=== PATIENT | male | born 1940 | race Caucasian/White ===

== ENCOUNTER → 2021-02-15 | Outpatient (CLI) | payer MEDICARE ==
[~2021-02-15] MED LIST: REGADENOSON 0.4 MG/5 ML SYRINGE IV PRN
--- NOTE | 2021-02-15 11:37 | P.STRESS ---
- Stress Test Note Stress Test Results/Findings: Exam Performed: NM stress lexiscan cardiolite Exam Date: 02/15/21 Reason for Exam: DYSPNEA Height: 5 ft 11 in Weight: 102.3 kg Protocol: LEXISCAN Stage: NA Duration of Exercise: 5 MINUTES Resting Heart Rate: 57 Resting Blood Pressure: 131/70 Maximum Achieved Heart Rate: 76 Maximum Achieved Blood Pressure: 131/70 85% PMHR: 101 100% PMHR: 119 METS: NA Technologist Comment: Stress Test Results/Findings: This is a 80-year-old gentleman with history of hypertension, diabetes, hypercholesterolemia, who was sent here for cardiac evaluation, as a preop procedure. Patient also has exertional dyspnea. Stress data: Baseline EKG showed sinus rhythm with normal WA interval and QRS duration. Blood pressure at rest is 130/70 with pulse rate of 57. Patient was given standard dose of Lexiscan. EKGs taken during and after the infusion did not reveal any significant changes from baseline. Final impression: #1. Negative Lexiscan stress test #2. Report on the nuclear images to be provided by the radiologist
--- NOTE | 2021-02-15 13:26 | NM ---
EXAMINATION TYPE: NM stress lexiscan cardiolite DATE OF EXAM: 02/15/2021 COMPARISON: NONE HISTORY: Chest pain TECHNIQUE: After the intravenous administration of 9.7 mCi Tc 99m Sestamibi - Cardiolite resting SPE CT images acquired 45 minutes post injection. The patient received 0.4mg Lexiscan, 25.8 mCi Tc 99m Sestamibi - Stress images obtained [address] injection FINDINGS: Review of stress and rest SPECT images demonstrates no distinct perfusion abnormality. Gated analysi s shows normal wall motion with an estimated left ventricular ejection fraction of 65 %. IMPRESSION: No scintigraphic evidence for reversible ischemia.
--- NOTE | 2021-02-18 09:03 | ECHOS ---
Stress Test Results/Findings: Exam Performed: NM stress lexiscan cardiolite Exam Date: 02/15/21 Reason for Exam: DYSPNEA Height: 5 ft 11 in Weight: 102.3 kg Protocol: LEXISCAN Stage: NA Duration of Exercise: 5 MINUTES Resting Heart Rate: 57 Resting Blood Pressure: 131/70 Maximum Achieved Heart Rate: 76 Maximum Achieved Blood Pressure: 131/70 85% PMHR: 101 100% PMHR: 119 METS: NA Technologist Comment: Stress Test Results/Findings: This is a 80-year-old gentleman with history of hypertension, diabetes, hypercholesterolemia, who was sent here for cardiac evaluation, as a preop procedure. Patient also has exertional dyspnea. Stress data: Baseline EKG showed sinus rhythm with normal [place] interval and QRS duration. Blood pressure at rest is 130/70 with pulse rate of 57. Patient was given standard dose of Lexiscan. EKGs taken during and after the infusion did not reveal any significant changes from baseline. Final impression: #1. Negative Lexiscan stress test #2. Report on the nuclear images to be provided by the radiologist SHARRON
== END | disposition home or self-care (01) ==
LOC: RADNMMAIN 07:53
PROVIDERS: ATTEND Family Medicine
DX: R07.9 Chest pain, unspecified (principal)
CPT/HCPCS: 93017; 78452; A9500; J2785

== ENCOUNTER → 2021-02-18 | Outpatient (CLI) | payer MEDICARE ==
[2021-02-18 11:57] LABS: Potassium 5.1 mmol/L (3.5-5.1)
[2021-02-18 11:58] LABS: Calcium 10.5 mg/dL (8.4-10.2)
[2021-02-18 12:11] LABS: Basophils # (A) 0.1 k/uL (0-0.2); Basophils % (A) 1 %; Eosinophils # (A) 0.2 k/uL (0-0.7); Eosinophils % (A) 3 %; HCT 47.8 % (39.0-53.0); HGB 16.9 gm/dL (13.0-17.5); Lymphocytes # (A) 1.8 k/uL (1.0-4.8); Lymphocytes % (A) 24 %; MCH 31.2 pg (25.0-35.0); MCHC 35.3 g/dL (31.0-37.0); MCV 88.4 fL (80.0-100.0); Mean Platelet Volume 7.1; Monocytes # (A) 0.5 k/uL (0-1.0); Monocytes % (A) 7 %; Neutrophils # (A) 4.7 k/uL (1.3-7.7); Neutrophils % (A) 64 %; Platelet Count 200 k/uL (150-450); RDW 13.5 % (11.5-15.5); WBC 7.5 k/uL (3.8-10.6)
[2021-02-18 12:13] LABS: Partial Thromboplastin Time 25.1 sec (22.0-30.0); Prothrombin Time 10.7 sec (9.0-12.0)
[2021-02-18 12:30] LABS: Appearance,Urine Clear (Clear); Bilirubin,Urine Negative (Negative); Blood,Urine Negative (Negative); Color,Urine Light Yellow; Glucose,Urine (UA) Negative (Negative); Ketones,Urine Negative (Negative); Leukocyte Esterase,Urine Negative (Negative); Nitrite,Urine Negative (Negative); Protein,Urine Negative (Negative); Specific Gravity,Urine 1.012 (1.001-1.035); Urobilinogen,Urine <2.0 mg/dL (<2.0)
--- NOTE | 2021-02-18 12:49 | XR ---
EXAMINATION TYPE: XR chest 2V DATE OF EXAM: 02/18/2021 COMPARISON: NONE HISTORY: Lumbar stenosis, presurgical TECHNIQUE: Frontal and lateral views of the chest are obtained. FINDINGS: There is no focal air space opacity, pleural effusion, or pneumothorax seen. The cardiac silhouette size is within normal limits. The osseous structures are intact, there is thoracic spond ylosis. Suspect there may be coronary artery calcifications. Aorta is dense and tortuous.. There is l ikely bowel hernia present, retrocardiac density with central lucency. IMPRESSION: No acute cardiopulmonary process. Additional findings above.
== END | disposition home or self-care (01) ==
LOC: LABPAT 09:41
PROVIDERS: ATTEND Orthopaedic Surgery Orthopaedic Surgery of the Spine
DX: Z01.812 Encounter for preprocedural laboratory examination (principal)
CPT/HCPCS: 36415; 71046; 80048; 81003; 85025; 85610; 85730; 87070

== ENCOUNTER 2021-02-27 07:03 | Inpatient (IN) | payer MEDICARE, OTHER ==
[~2021-02-27 07:03] MED LIST changes: +LIDOCAINE 1% (10MG/ML) FOR IV START INTRADERMA PRN; -REGADENOSON 0.4 MG/5 ML SYRINGE IV PRN; +ceFAZolin 1,000 MG in SODIUM CHLORIDE 0.9% IRRIGATIO 1,000 ML IRRIGATION PRN
[2021-02-27] MEDS ORDERED: LACTATED RINGERS 1,000 ML IV ONE ×2 (07:41→09:38)
[2021-02-27 07:56] LABS: Glucose,Whole Blood 134 mg/dL (75-99)
[2021-02-27] MEDS ORDERED: ONDANSETRON 4 MG/2 ML VIAL IVP ONE (08:02)
[2021-02-27] MEDS ORDERED: fentaNYL (PF) 50 MCG/ML 2 ML AMP ONE (08:34)
[2021-02-27] MEDS ORDERED: MIDAZOLAM 2 MG/2 ML VIAL ONE (08:34)
[2021-02-27] MEDS ORDERED: NEOSTIGMINE 1 MG/ML 10 ML VIAL ONE (08:34)
[2021-02-27] MEDS ORDERED: HEPARIN SODIUM,PORCINE 10,000 UNIT/ML 1 ML VIAL ONE (08:34)
[2021-02-27] MEDS ORDERED: PROPOFOL 10 MG/ML 20 ML VIAL IV ONE (08:34)
[2021-02-27] MEDS ORDERED: LIDOCAINE 1% INJ 10MG/ML (20 ML MDV) ONE (08:34)
[2021-02-27] MEDS ORDERED: ePHEDrine SULFATE/0.9% NACL/PF 50 MG/5 ML SYRINGE IV ONE (08:34)
[2021-02-27] MEDS ORDERED: ROCURONIUM 10 MG/ML (5 ML VIAL) IV ONE (08:34)
[2021-02-27] MEDS ORDERED: SODIUM CHLORIDE 0.9% IRRIG 1,000 ML BTL IRRIGATION ONE (08:34)
[2021-02-27] MEDS ORDERED: GLYCOPYRROLATE 0.2 MG/ML 2 ML VIAL ONE (08:34)
[2021-02-27] MEDS ORDERED: SUCCINYLCHOLINE CHLORIDE VIAL 200 MG/10 ML VIAL IV ONE (08:34)
[2021-02-27] MEDS ORDERED: LIDOCAINE 0.5%-EPI 1:200,000 50 ML VIAL SQ ONE (08:40)
[2021-02-27] MEDS ORDERED: GELATIN SPONGE,ABSORB (LARGE) 1 EACH SPONGE TOPICAL ONE (08:40)
[2021-02-27] MEDS ORDERED: THROMBIN (BOVINE) 5,000 UNIT VIAL TOPICAL ONE (08:40)
--- NOTE | 2021-02-27 13:00 | FL ---
EXAMINATION TYPE: FL guidance operating room DATE OF EXAM: 02/27/2021 HISTORY: Fluoroscopy time 32 seconds of fluoroscopy provided. IMPRESSION: 1. Fluoroscopy time.
--- NOTE | 2021-02-27 13:05 | XR ---
Fluoroscopy History: MIN. INVASIVE LUMBAR FUSION FOR SPINAL STENOSIS Lumbar fusion, Dr. Jamison, 32 sec fl time
[2021-02-27] MEDS ORDERED: ONDANSETRON 4 MG/2 ML VIAL IVP PRN (13:06)
[2021-02-27] MEDS ORDERED: BENZOCAINE/MENTHOL LOZENG 1 EACH LOZENGE MUCOUS MEM PRN (13:06)
--- NOTE | 2021-02-27 13:16 | P.OP ---
Date of Procedure: 02/27/21 Preoperative Diagnosis: Severe spinal stenosis L3 4 L4 5, facet cyst on the left at L3 4 and on the right at L4 5, low back pain, lower extremity radiculopathy, lower extremity weakness, spinal stenosis, neurogenic claudication, facet arthrosis Postoperative Diagnosis: Same Anesthesia: GETA Pathology: none sent Condition: stable Disposition: PACU Description of Procedure: DESCRIPTION OF PROCEDURE(S): BRIEF OPERATIVE NOTE Preoperative Diagnosis: Severe spinal stenosis L3 4 L4 5, facet cyst on the left at L3 4 and on the right at L4 5, low back pain, lower extremity radiculopathy, lower extremity weakness, spinal stenosis, neurogenic claudication, facet arthrosis Postoperative Diagnosis: Same Procedure: Laminectomy and decompression L3 4 L4 5 Excision of facet cyst L3 [address] navigation aided Minimally invasive Posterior lateral decompression and facet fusion L3 4 L4 5 Minimally invasive Transforaminal lumbar interbody fusion for a 360 fusion at L3 4 and L4 5 Discectomy for decompression at L3 4 and L4 5 Placement of interbody graft at L3 4 and L4 5 Use of computer navigation for fusion L3 4 and 5 Local autogenous bone grafting Aspiration of bone marrow from the vertebral body pedicle of L3 on the right Use of bone graft extenders Surgeon: Dr. Jamison Fingernail Former: Lenin MCKENZIE who is present throughout the entire the case persistence during positioning, dissection, exposure, visualization, and all crucial elements of the case as well as closure. Anesthesia: General anesthesia Estimated blood loss: Approximately 400 mL Complications: None apparent Components implanted: K2M minimally invasive [place] pedicle screw system withscrews measuring 6.5 mm in diameter to rods one [place] interbody cage as well as a expandable 8-13 mm interbody cage with 10 mL of osteo amp bio4 bone graft substitute and 30 mL of the BX bone boats to supplement the local autogenous bone graft and bone marrow aspirate Disposition: To recovery room in good stable condition. OPERATIVE INDICATIONS The patient has had severe issues at their lower extremity in her lower back over the past several years with significant worsening over the past several months. Over the past few months the patient had pain at their back and their lower extremities. The patient is having severe radicular symptoms at their lower extremity with weakness. The patient is having significant pain in their back. They are unable to obtain any comfort. His imaging showed evidence of cysts severe stenosis L3 4 and L4 5 with evidence of facet cyst both at L3 4 and L4 5 causing further compression and correlated well with his low back and lower extremity symptoms . We did aggressive conservative treatment with medications therapy and interventional pain management however thery were not having any rel ief. The patient has been through conservative treatment. We discussed various treatment options including surgery, and the patient wishes to proceed with surgery We discussed the risk, patient's alternatives and benefits of surgery including but not limited to, risk of bleeding risk of infection, risk of need for further surgery, risk of decreased, loss of motion, muscle function, malunion nonunion, hardware failure, nerve damage, paralysis, heart attack, blindness and . They understood issues with the current pandemic and the possibility of exposure. OPERATIVE SUMMARY After discussing all the risks, patient alternatives and benefits at length, the patient elected to proceed with surgical intervention, signed informed consent, and presented for their procedure. The patient was seen and examined in the preoperative holding area and the surgical site was marked. The patient was given antibiotics and brought to the operating room. The patient was sedated and intubated by anesthesia in standard fashion. The patient was positioned on to the operating room table in a prone position on the appropriate frame which was well-padded and well molded. We were careful to pad any bony prominences and pressure points. We were careful to maintain the patient's cervical spine and good neutral alignment and position throughout. The patient was prepped and draped in a normal standard fashion. An appropriate timeout and keystone protocol performed. We were able to proceed with the surgery. The local wound area was infiltrated with local anesthetic. Over the right iliac crest I was able to make small stab incisions and establish a guidepin screw fixation to the iliac crest 2. I was able place the computer referencing device over the guidepins to establish an appropriate reference point for the Ziem CT navigation. We then were able to place patient in an appropriate drape and do a navigation spin for visualization and 3-D reconstruction of the lumbar spine. I was able utilize C-arm guidance and navigation to establish appropriate position over the pedicles bilaterally at the appropriate levels . With the appropriate levels confirmed at L3 4 and 5 was able to make small incisions over the appropriate pedicle sites bilaterally. Utilizing the computer navigation device I was able to establish bony landmarks at the right iliac crest for a bony reference point for the navigation device. I was able to establish a Jamshidi needle over the lateral aspect of the pedicle and advanced the trocar into the pedicle being careful not to breech superiorly inferiorly medially or laterally using computer navigation device. Position was confirmed regularly with AP and lateral images on C-arm and with the computer navigation device at the appropriate levels bilaterally. I was able to establish the trocar into the pedicle appropriately into the posterior aspect of the vertebral body bilaterally at the appropriate levels. This was done at each of the pedicle positions and each of the vertebrae. At the superior vertebrae I was able to take approximately 25 mL of bone aspiration from the pedicle of L3 on the right for use later in the case to supplement the allograft and autograft bone. I was able place the guidewire into the trocar and into the vertebral body appropriately under C-arm guidance. Dissection was taken down over the wire to the appropriate starting position for the screw placed. The appropriate length screw was chosen, threaded over the guidewire and screwed appropriately into the pedicle and vertebral body under C-arm guidance in excellent alignment and position with good bony purchase. This is done at each of the screw sites at the appropriate levels at L3 4 and 5 bilaterally. With the screws intact I extended the incision to connect the screw hole sites on the most symptomatic side first on the right at L4 5 and then on the left at L 3 4. I dissected down to establish access over the pars and lamina to the base of the spinous process. I was able to expose the facet joint. The capsule the facet was taken down and showed some facet arthrosis at the joint. I was able to use a combination of curettes and Kerrison rongeurs and a high-speed drill to take down the facet joint and do a facetectomy. I was able get excellent foraminal decompression and central decompression with undermining across midline to perform a laminectomy centrally and contralaterally. I was able to remove facet cyst from the facet joint extending to the epidural space causing further compression. I was able to get good central decompression. The ligamentum flavum was taken down to further decompress centrally and at bilateral neural foramen. I was able to expose the disc space and visualize the traversing nerve root. Note was made of some disc protrusion and disc herniation that was abutting the traversing nerve root at the level causing further compression of the nerve root. I was able to establish a annulotomy at the appropriate level protecting soft tissue and neural structures. Note was made of some disc desiccation at the disc. I performed a complete discectomy with accommodation of curettes and rasps and scrapers. I was able get good endplate preparation at the disc space. I sized for the appropriate size interbody spacer protecting the soft tissue and neural structures. The wound was copiously irrigated and suctioned dry. There is no evidence of any dural tear or leak. I was able to pack the disc space with local autogenous bone graft as well as a small amount of bone graft which was also placed into the interbody cage itself. Protecting the soft tissue structures and neural structures I was able place the interbody cage in good alignment and good position with good fit and fill at the interbody space. This was done first at L 45 on the right and then at L3 4 similarly on the left. At L3 4 I used an expandable cage for appropriate fit at interbody space Position was confirmed with C-arm guidance. Good hemostasis maintained. There is no evidence of any dural tear or leak. The wound was irrigated and suctioned dry. With the hardware intact, intraoperative C-arm imaging was again taken which showed good alignment and position of the hardware at the appropriate levels Of L3 4 and 5. We were then able to measure, contour and place the rods and appropriate hardware bilaterally. I was able to place capcrews, tighten them down, and torque them with the torque screwdriver appropriately. With this intact I was able to place the local autogenous bone graft with additional bone graft enhancer as necessary into the posterior lateral gutters over the decorticated transverse processes and facet joints on the contralateral side. The remainder of the bone graft was placed over the facet joint on the contralateral side after taking down the facet joint capsule. With the bone graft intact, a stable construct, and good decompression at the appropriate levels, we were able to proceed with closure. Good hemostasis was maintained. There is no evidence of dural tear or leak. The fascia was closed for a watertight closure. he subcuticular tissue was closed with absorbable suture. The wound was cleaned and dried and dressed with the appropriate dressing. The drapes were broken down. The patient was gently rolled back onto their hospital bed being careful to maintain their cervical spine and good neutral alignment and position. They were woken up by anesthesia, extubated, and brought to the recovery room in good stable condition. The patient will be admitted to the hospital for appropriate postoperative care, medical management and monitoring. We will continue to follow them closely about the postoperative course.
[2021-02-27] MEDS: HYDROmorphone 0.5 MG/0.5 ML SYRINGE IVP PRN ×4 (13:24→14:17)
[2021-02-27 13:40] LABS: Glucose,Whole Blood 198 mg/dL (75-99)
[2021-02-27] MEDS: fentaNYL (PF) 50 MCG/ML 2 ML AMP IVP ONE ×3 (13:42→13:59)
[2021-02-27] MEDS: SODIUM CHLORIDE 0.9% 1,000 ML IV SCH ×2 (14:01→14:42)
[2021-02-27] MEDS: HYDROcodone/APAP 5-325MG 1 EACH TAB PO PRN ×2 (15:17→21:17)
[2021-02-27] MEDS: LACTATED RINGERS 1,000 ML IV SCH ×2 (15:31→16:37)
[2021-02-27 16:23] LABS: Glucose,Whole Blood 158 mg/dL (75-99)
[2021-02-27] MEDS: metFORMIN 500 MG TAB PO SCH (16:36)
[2021-02-27] MEDS: HYDROmorphone 1 MG/ML 1 ML SYRINGE IVP PRN ×2 (18:06→23:07)
[2021-02-27 20:12] LABS: Glucose,Whole Blood 140 mg/dL (75-99)
[2021-02-27] MEDS: METOPROLOL SUCCINATE (ER) 50 MG TAB.ER.24H PO SCH (21:17)
[2021-02-28] MEDS: HYDROcodone/APAP 5-325MG 1 EACH TAB PO PRN ×5 (02:14→21:17)
[2021-02-28] MEDS: HYDROmorphone 1 MG/ML 1 ML SYRINGE IVP PRN ×6 (03:30→23:10)
[2021-02-28] MEDS: HYDROmorphone 0.5 MG/0.5 ML SYRINGE IVP PRN (06:11)
[2021-02-28] MEDS: ASCORBIC ACID 500 MG TAB PO SCH (07:01)
[2021-02-28] MEDS: metFORMIN 500 MG TAB PO SCH ×2 (07:02→16:46)
[2021-02-28] MEDS: ATORVASTATIN 10 MG TAB PO SCH (07:02)
[2021-02-28] MEDS: ZINC SULFATE 220 MG CAP PO SCH (07:02)
[2021-02-28] MEDS: PANTOPRAZOLE 40 MG TABLET PO SCH (07:02)
[2021-02-28] MEDS: CYCLOBENZAPRINE 10 MG TAB PO PRN (07:03)
[2021-02-28] MEDS: LOSARTAN 50 MG TAB PO SCH (07:03)
[2021-02-28] MEDS: CHOLECALCIFEROL 25 MCG (1000 IU) TABLET PO SCH (07:03)
[2021-02-28] MEDS: DULoxetine HCL 30 MG CAPSULE.DR PO SCH (07:03)
[2021-02-28] MEDS: SENNOSIDES-DOCUSATE SODIUM 1 EACH TAB PO SCH (07:03)
[2021-02-28 07:04] LABS: Glucose,Whole Blood 156 mg/dL (75-99)
[2021-02-28] MEDS: SODIUM CHLORIDE 0.9% 1,000 ML IV SCH ×2 (07:05→15:24)
[2021-02-28] MEDS ORDERED: NON FORMULARY DRUG (Ubidecarenone [Co Q-10] 100 MG Capsule) PO SCH (09:00)
[2021-02-28 09:55] LABS: Basophils # (A) 0.03 X 10*3/uL (0.00-0.10); Basophils % (A) 0.3 %; Eosinophils # (A) 0.06 X 10*3/uL (0.04-0.35); Eosinophils % (A) 0.5 %; HCT 40.4 % (39.6-50.0); HGB 13.4 g/dL (13.0-17.0); Lymphocytes # (A) 1.52 X 10*3/uL (0.90-5.00); Lymphocytes % (A) 13.3 %; MCH 30.3 pg (27.0-32.0); MCHC 33.2 g/dL (32.0-37.0); MCV 91.4 fL (80.0-97.0); Mean Platelet Volume 9.3 fL (9.5-12.2); Monocytes # (A) 1.31 X 10*3/uL (0.20-1.00); Monocytes % (A) 11.5 %; Neutrophils # (A) 8.44 X 10*3/uL (1.80-7.70); Platelet Count 148 X 10*3/uL (140-440); RBC 4.42 X 10*6/uL (4.40-5.60); RDW 13.2 % (11.5-14.5); WBC 11.41 X 10*3/uL (4.50-10.00)
--- NOTE | 2021-02-28 10:19 | P.PN ---
Progress Note - Text Progress Note Date: 02/28/21 Postoperative day #1 Patient is seen and examined today at bedside. The patient has some pain around the surgical site as expected. Pain is being controlled with medication. He is sealed up in bed and is tolerating his diet. He is voiding freely. Physical Exam Afebrile with stable vital signs Abdomen is soft nontender. Chest has good excursion deep and space expiration The incision site is clean dry and intact. No erythema there is no purulence. Dressing is dry. Extremities have not had neurologic change from prior to surgery. Calves and thighs were soft nontender without evidence of DVT. He is good sustained dorsal flexion plantar flexion and EHL intact. Assessment/Plan Postoperative day #1 status post minimally invasive decompression fusion L34 and L4 5 for his severe spinal stenosis with facet cysts lower extremity radiculopathy and neurogenic claudication. He is making good progress Patient is progressing as expected from the surgery. He already has been able to mobilize and get up to a chair. He still requiring IV medication for pain but is hopeful to continue to transition and potentially be discharged home tomorrow We will continue to increase the patient's mobilization with therapy. We will continue pain control with oral or IV medications. We'll continue to follow patient closely.
[2021-02-28 11:26] LABS: Glucose,Whole Blood 147 mg/dL (75-99)
[2021-02-28] MEDS: LACTATED RINGERS 1,000 ML IV SCH (15:24)
[2021-02-28 16:00] LABS: African American GFR (CKD) 81.5 (60.0-200.0); Anion Gap 14.8 mmol/L (4.00-12.00); BUN/Creat Ratio 14.3 Ratio (12.00-20.00); Blood Urea Nitrogen 14.3 mg/dL (9.0-27.0); Calcium 8.6 mg/dL (8.7-10.3); Carbon Dioxide 21.4 mmol/L (21.6-31.8); Non-African American GFR(CKD) 70.3 (60.0-200.0); Potassium 4.5 mmol/L (3.5-5.5)
[2021-02-28 16:49] LABS: Glucose,Whole Blood 163 mg/dL (75-99)
[2021-02-28 21:13] LABS: Glucose,Whole Blood 170 mg/dL (75-99)
[2021-02-28] MEDS: METOPROLOL SUCCINATE (ER) 50 MG TAB.ER.24H PO SCH (21:17)
[2021-03-01] MEDS: CYCLOBENZAPRINE 10 MG TAB PO PRN ×3 (01:18→22:29)
[2021-03-01] MEDS: HYDROmorphone 1 MG/ML 1 ML SYRINGE IVP PRN ×3 (03:21→22:29)
[2021-03-01] MEDS: HYDROcodone/APAP 5-325MG 1 EACH TAB PO PRN ×3 (04:22→12:25)
[2021-03-01 07:14] LABS: Glucose,Whole Blood 147 mg/dL (75-99)
[2021-03-01] MEDS: SODIUM CHLORIDE 0.9% 1,000 ML IV SCH ×3 (07:26→22:32)
[2021-03-01] MEDS: LOSARTAN 50 MG TAB PO SCH (08:01)
[2021-03-01] MEDS: PANTOPRAZOLE 40 MG TABLET PO SCH (08:01)
[2021-03-01] MEDS: ZINC SULFATE 220 MG CAP PO SCH (08:01)
[2021-03-01] MEDS: CHOLECALCIFEROL 25 MCG (1000 IU) TABLET PO SCH (08:01)
[2021-03-01] MEDS: ATORVASTATIN 10 MG TAB PO SCH (08:01)
[2021-03-01] MEDS: SENNOSIDES-DOCUSATE SODIUM 1 EACH TAB PO SCH (08:01)
[2021-03-01] MEDS: DULoxetine HCL 30 MG CAPSULE.DR PO SCH (08:01)
[2021-03-01] MEDS: ASCORBIC ACID 500 MG TAB PO SCH (08:01)
[2021-03-01] MEDS: metFORMIN 500 MG TAB PO SCH ×2 (08:01→16:45)
--- NOTE | 2021-03-01 08:34 | P.CONS ---
History of Present Illness - Reason for Consult Consult date: 02/28/21 medical eval Requesting physician: Aston Jamison - History of Present Illness Aric Queen is an 80 yo M with PMH of HTN, OA, lumbar spinal stenosis who is admitted for decompressive lumbar fusion. He is POD#1, states he is overall feeling well, minimal low back pain. He has been up and ambulating with PT, no issues with balance or weakness. Denies chest pain, fever, chills, shortness of breath. Review of Systems All systems: negative Constitutional: Denies chills, Denies fever Eyes: denies blurred vision, denies pain Ears, nose, mouth and throat: Denies headache, Denies sore throat Cardiovascular: Denies chest pain, Denies shortness of breath Respiratory: Denies cough Gastrointestinal: Denies abdominal pain, Denies diarrhea, Denies nausea, Denies vomiting Musculoskeletal: Denies myalgias Integumentary: Denies pruritus, Denies rash Neurological: Denies numbness, Denies weakness Psychiatric: Denies anxiety, Denies depression Endocrine: Denies fatigue, Denies weight change Past Medical History Past Medical History: Diabetes Mellitus, GERD/Reflux, Hyperlipidemia, Hypertension, Osteoarthritis (OA) Additional Past Medical History / Comment(s): HX COLON POLYPS. NEUROPATHY IN FEET. History of Any Multi-Drug Resistant Organisms: None Reported Past Surgical History: Joint Replacement Additional Past Surgical History / Comment(s): DEIRDRE KNEE REPLACEMENTS. FUSION OF RIGHT WRIST Past Anesthesia/Blood Transfusion Reactions: No Reported Reaction Past Psychological History: No Psychological Hx Reported Additional Psychological History / Comment(s): TAKES DULOXETINE FOR NEUROPATHY IN FEET. Smoking Status: Never smoker Past Alcohol Use History: Rare Past Drug Use History: None Reported - Past Family History Mother Family Medical History: Cancer Additional Family Medical History / Comment(s): MOTHER PASSED AT AGE 38 FROM BREAST CANCER. Medications and Allergies Home Medications Medication Instructions Recorded Confirmed Type Ascorbic Acid [Vitamin C] 100 mg PO DAILY 02/25/21 02/25/21 History Cholecalciferol [Vitamin D3 (25 50 mcg PO DAILY 02/25/21 02/25/21 History Mcg = 1000 Iu)] DULoxetine HCL [Cymbalta] 30 mg PO QAM 02/25/21 02/27/21 History Fiber Tabs 1 tab PO DAILY 02/25/21 02/27/21 History Ibuprofen [Motrin] 800 mg PO BID PRN 02/25/21 02/25/21 History Losartan [Cozaar] 50 mg PO QAM 02/25/21 02/25/21 History Metoprolol Succinate [Toprol XL] 50 mg PO HS 02/25/21 02/27/21 History Omeprazole 40 mg PO QAM 02/25/21 02/27/21 History Simvastatin [Zocor] 20 mg PO QAM 02/25/21 02/27/21 History Ubidecarenone [Co Q-10] 100 mg PO DAILY 02/25/21 02/27/21 History Zinc Sulfate [Orazinc] 25 mg PO DAILY 02/25/21 02/25/21 History metFORMIN HCL 500 mg PO BID 02/25/21 02/27/21 History Allergies Allergy/AdvReac Type Severity Reaction Status Date / Time No Known Allergies Allergy Verified 08/20/15 13:51 Physical Exam Vitals: Vital Signs Temp Pulse Pulse Resp BP Pulse Ox 03/01/21 02:00 99.1 F 89 17 168/72 96 02/28/21 19:26 98.8 F 92 16 163/86 95 02/28/21 14:00 99.1 F 97 18 161/78 94 L Intake and Output 02/28/21 03/01/21 03/01/21 22:59 06:59 14:59 Intake Total 250 380 Output Total 900 1000 Balance -650 -620 Intake: Oral 250 380 Output: Urine 900 1000 Uretheral (Christopher) 900 1000 Gen: well developed, well nourished, NAD HEENT: normocephalic, atraumatic, mucus membranes moist Neck: supple, no thyromegaly, no JVD CV: RRR, no murmur Lungs: normal effort clear throghout Abd: soft, nontender, non distended Neuro: alert and oriented x3 no focal deficits Skin: warm and dry Results CBC & Chem 7: 02/28/21 05:59 02/28/21 05:59 Labs: Abnormal Lab Results - Last 24 Hours (Table) 02/28/21 02/28/21 02/28/21 Range/Units 05:59 05:59 11:20 WBC 11.41 H (4.50-10.00) X 10*3/uL MPV 9.3 L (9.5-12.2) fL Immature Gran # 0.05 H (0.00-0.04) X 10*3/uL Neutrophils # 8.44 H (1.80-7.70) X 10*3/uL Monocytes # 1.31 H (0.20-1.00) X 10*3/uL Carbon Dioxide 21.4 L (21.6-31.8) mmol/L Anion Gap 14.80 H (4.00-12.00) mmol/L Glucose 149 H (70-110) mg/dL POC Glucose (mg/dL) 147 H (75-99) mg/dL Calcium 8.6 L (8.7-10.3) mg/dL 02/28/21 02/28/21 03/01/21 Range/Units 16:41 21:11 07:12 WBC (4.50-10.00) X 10*3/uL MPV (9.5-12.2) fL Immature Gran # (0.00-0.04) X 10*3/uL Neutrophils # (1.80-7.70) X 10*3/uL Monocytes # (0.20-1.00) X 10*3/uL Carbon Dioxide (21.6-31.8) mmol/L Anion Gap (4.00-12.00) mmol/L Glucose (70-110) mg/dL POC Glucose (mg/dL) 163 H 170 H 147 H (75-99) mg/dL Calcium (8.7-10.3) mg/dL Assessment and Plan Plan: 1. Spinal stenosis s/p lumbar fusion. Doing well, continue with PT, OT. Management per surgery. He is medically stable for discharge 2. HTN. Resume losartan 3. T2DM. Resume metformin. Accucheck
--- NOTE | 2021-03-01 08:47 | P.PN ---
Progress Note - Text Progress Note Date: 03/01/21 Orthopedic Spine: History of present illness: Patient is a pleasant 80-year-old male who is seen and examined at the bedside following posterior lateral decompression and fusion performed Thursday. Patient states they are doing okay postsurgically. He states he does continue to have some ongoing low back pain and generalized pain as well as lower extremities. He has been able to work with physical therapy to increase his ambulation and transfer to a chair. He was having significant difficulty with voiding yesterday and required straight catheterization to be performed twice. Bladder scan imaging showed evidence of 900 mL's of urinary retention. Christopher catheter was placed last night. Currently does not complain of nausea, vomiting, fever, or chills. Patient is eating without difficulty but does not have much of an appetite. He is being seen and examined by medicine. He does continue to require IV pain medication for pain control. He is being seen and examined by Dr. Mendoza in medicine. Physical Exam Lumbar Fusion: Status post surgical day number 2 Patient is awake, alert, and oriented 3 Vital signs stable Good chest excursion with deep inspiration and expiration Dorsiflexion, plantarflexion, and extensor hallucis longus positive sustained bilaterally No signs or symptoms of DVT; no calf pain; pneumatic cuffs not currently intact bilateral lower extremities Optifoam dressings are dry and intact over the lumbar spine with one small spot of blood over the left incision site and right iliac crest; no erythema, purulence, or signs of infection Neurovascularly intact bilaterally lower extremities Assessment: Status post L3-4 and L4-5 minimally invasive posterior lateral decompression and fusion with transforaminal lumbar interbody fusion Low back pain L3-4 and L4-5 severe spinal canal stenosis L3-4 left facet cyst L4-5 right facet cyst Lower extremity radiculopathy Lower extremity weakness Hyperlipidemia Type 2 diabetes Obesity Plan: 1. Ambulate as tolerated; work with Physical Therapy to increase mobilization 2. Continue pain control with IV and oral medications; will plan to begin weaning the patient off of IV narcotic medication in anticipation for discharge home in the next 1-2 days. We will plan to increase Esparto to Esparto 7.5 mg /325 mg every 4 hours as needed for pain control and discontinue Esparto 5 mg/325 mg. May continue with cyclobenzaprine 10 mg 3 times a day as prescribed as needed for muscle spasm. MAPS has been reviewed today, 03/01/2021, with an Overall Overdose Risk Score of 190. An "Opiod Start Talking" Form has been signed and placed in the patient's chart. A prescription has been written for Esparto 7.5 mg/325 mg 1 tab every 4 hours as needed for pain, dispensed #42. He is also given a prescription for cyclobenzaprine 10 mg 1 tab 3 times a day as needed for muscle spasm, dispensed #60. Prescriptions are sent to the [facility] pharmacy located within [facility]. 3. Dressings to remain intact with Optifoam; patient may shower with dressings intact 4. Medical management can continue to manage patient for patient's other medical diagnoses including urinary retention. Patient has been discussed in detail with medicine. Patient will plan to keep his Christopher catheter intact per recommendations of medicine. 5. We will continue to follow the patient closely; depending on the patient's p rogress, we may plan for discharge home as early as tomorrow, 03/01/2021, if cleared by medicine. 6. Patient can follow-up with Lenin Pabon PA-C or Dr. Gino Jamison at [facility] in 2-3 weeks following discharge
[2021-03-01] MEDS: TAMSULOSIN 0.4 MG CAP.ER.24H PO SCH (09:20)
[2021-03-01] MEDS: LACTATED RINGERS 1,000 ML IV SCH (09:51)
[2021-03-01 11:09] LABS: Glucose,Whole Blood 177 mg/dL (75-99)
--- NOTE | 2021-03-01 13:24 | P.PN ---
Subjective Progress Note Date: 03/01/21 Aric Queen is an 80 yo M with PMH of HTN, OA, lumbar spinal stenosis who is admitted for decompressive lumbar fusion. He is POD#1, states he is overall feeling well, minimal low back pain. He has been up and ambulating with PT, no issues with balance or weakness. Denies chest pain, fever, chills, shortness of breath. 03/01/2021 During the night developed urinary retention requiring straight cathing 2 with eventual placement of Christopher catheter. BUN 14.3, creatinine 1. Reports positive pain. Ambulated out into the hallway. T-max 99.1, WBC 11.4. Blood sugars controlled Objective - Vital Signs Vital signs: Vital Signs Temp 98.4 F 03/01/21 09:47 Pulse 81 03/01/21 09:47 Resp 16 03/01/21 09:47 BP 150/73 03/01/21 09:47 Pulse Ox 96 03/01/21 09:47 Intake & Output 02/28/21 03/01/21 03/01/21 18:59 06:59 18:59 Intake Total 250 380 Output Total 600 1900 2800 Balance -350 -1520 -2800 Intake: Oral 250 380 Output: Urine 600 1900 2800 Uretheral (Christopher) 600 1900 Other: Voiding Method Indwelling Catheter - Exam Gen: well developed, well nourished, NAD HEENT: normocephalic, atraumatic, mucus membranes moist Neck: supple, no thyromegaly, no JVD CV: RRR, no murmur Lungs: normal effort clear throghout Abd: soft, nontender, non distended, +BS Neuro: alert and oriented x3 no focal deficits Skin: warm and dry - Labs CBC & Chem 7: 02/28/21 05:59 02/28/21 05:59 Labs: Abnormal Lab Results - Last 24 Hours (Table) 02/28/21 02/28/21 02/28/21 Range/Units 05:59 16:41 21:11 Carbon Dioxide 21.4 L (21.6-31.8) mmol/L Anion Gap 14.80 H (4.00-12.00) mmol/L Glucose 149 H (70-110) mg/dL POC Glucose (mg/dL) 163 H 170 H (75-99) mg/dL Calcium 8.6 L (8.7-10.3) mg/dL 03/01/21 03/01/21 Range/Units 07:12 11:08 Carbon Dioxide (21.6-31.8) mmol/L Anion Gap (4.00-12.00) mmol/L Glucose (70-110) mg/dL POC Glucose (mg/dL) 147 H 177 H (75-99) mg/dL Calcium (8.7-10.3) mg/dL Assessment and Plan Assessment: Spinal stenosis s/p lumbar fusion. Urinary retention, status post Christopher catheter insertion HTN. T2DM. Plan: Continue on current medication regime ,monitoring and symptomatic treatment. PT/OT. Increase ambulation as tolerated. Pain management as per orthopedic spine surgery. Flomax added to med regimen. The impression and plan of care has been dictated as directed. : I performed a history and examination of this patient, discussed the same with the dictator. I agree with the dictator's note ,documented as a scribe. Any a dditional findings or plans will be noted.
[2021-03-01] MEDS: HYDROmorphone 0.5 MG/0.5 ML SYRINGE IVP PRN (14:57)
[2021-03-01] MEDS: HYDROcodone/APAP 7.5-325MG 1 EACH TAB PO PRN (15:54)
[2021-03-01 16:29] LABS: Glucose,Whole Blood 142 mg/dL (75-99)
[2021-03-01 20:53] LABS: Glucose,Whole Blood 219 mg/dL (75-99)
[2021-03-01] MEDS: METOPROLOL SUCCINATE (ER) 50 MG TAB.ER.24H PO SCH (22:29)
[2021-03-02] MEDS: HYDROcodone/APAP 7.5-325MG 1 EACH TAB PO PRN ×6 (00:20→22:08)
[2021-03-02] MEDS: HYDROmorphone 1 MG/ML 1 ML SYRINGE IVP PRN (03:26)
[2021-03-02 08:07] LABS: Glucose,Whole Blood 172 mg/dL (75-99)
[2021-03-02] MEDS: CHOLECALCIFEROL 25 MCG (1000 IU) TABLET PO SCH (08:23)
[2021-03-02] MEDS: metFORMIN 500 MG TAB PO SCH ×2 (08:23→17:03)
[2021-03-02] MEDS: TAMSULOSIN 0.4 MG CAP.ER.24H PO SCH (08:23)
[2021-03-02] MEDS: ZINC SULFATE 220 MG CAP PO SCH (08:23)
[2021-03-02] MEDS: DULoxetine HCL 30 MG CAPSULE.DR PO SCH (08:23)
[2021-03-02] MEDS: PANTOPRAZOLE 40 MG TABLET PO SCH (08:23)
[2021-03-02] MEDS: SENNOSIDES-DOCUSATE SODIUM 1 EACH TAB PO SCH (08:23)
[2021-03-02] MEDS: ASCORBIC ACID 500 MG TAB PO SCH (08:23)
[2021-03-02] MEDS: ATORVASTATIN 10 MG TAB PO SCH (08:23)
[2021-03-02] MEDS: LOSARTAN 50 MG TAB PO SCH (08:23)
--- NOTE | 2021-03-02 09:38 | P.PN ---
Progress Note - Text Progress Note Date: 03/02/21 Postoperative day #3 Patient is seen and examined today at bedside. The patient has some pain around the surgical site as expected, But is mobilizing fairly well. His legs are still giving him some issues but he is moving appropriately with good strength in bed.. Pain is being controlled with medication. Physical Exam Afebrile with stable vital signs Abdomen is soft nontender. Chest has good excursion deep and space expiration The incision site is clean dry and intact. No erythema there is no purulence. Extremities have not had neurologic change from prior to surgery.He has sustained dorsal flexion and EHL intact Calves and thighs were soft nontender without evidence of DVT. His Christopher is intact again today this morning Assessment/Plan Postoperative day #3 status post minimally invasive decompression and fusion L3 4 L4 5 for his severe spinal stenosis with facet cysts and lower extremity radiculopathy and claudication Patient is progressing as expected from the surgeryIn terms of his lower back and his legs. We will continue to increase the patient's mobilization with therapy. Unfortunately the patient is still having urinary retention. He had a straight cath 2 Overnight and has his Christopher intact this morning. He has been on Flomax for the past 2 days and we'll see if he is able to void after discontinue Christopher in the morning. It is unable to void at that point we may have urology see him and would likely have to discharge him with a Christopher intact. I tried to discuss this with the patient and he seems to understand. We will continue pain control with oral or IV medications. We'll continue to follow patient closely.
[2021-03-02] MEDS: MAGNESIUM HYDROXIDE 2,400 MG/10 ML CUP PO PRN (09:39)
[2021-03-02 10:39] LABS: African American GFR (CKD) >90 (>60 ml/min/1.73 sqM); Anion Gap 9 mmol/L; Blood Urea Nitrogen 11 mg/dL (9-20); Carbon Dioxide 26 mmol/L (22-30); Chloride 95 mmol/L (98-107); Glucose 184 mg/dL (74-99); Magnesium 1.9 mg/dL (1.6-2.3); Non-African American GFR(CKD) 85 (>60 ml/min/1.73 sqM); Potassium 3.9 mmol/L (3.5-5.1); Sodium 130 mmol/L (137-145)
[2021-03-02 10:45] LABS: HCT 38.1 % (39.0-53.0); MCH 31.4 pg (25.0-35.0); MCHC 35.2 g/dL (31.0-37.0); MCV 89.1 fL (80.0-100.0); Mean Platelet Volume 7.2; Platelet Count 168 k/uL (150-450); RBC 4.28 m/uL (4.30-5.90); WBC 10.4 k/uL (3.8-10.6)
[2021-03-02 10:47] LABS: HGB 13.4 gm/dL (13.0-17.5)
[2021-03-02 11:47] LABS: Glucose,Whole Blood 134 mg/dL (75-99)
[2021-03-02] MEDS: HYDROmorphone 0.5 MG/0.5 ML SYRINGE IVP PRN (13:35)
--- NOTE | 2021-03-02 14:10 | P.PN ---
Subjective This is the first thing on covering Dr. Mendoza for this patient. this is a pleasant 80 years old male presents with L3 to 4 and L4 to 5 severe spinal stenosis with radiculopathy and weakness of lower extremity status post L3 to L4 and L4 to L5 decompressive surgery and fusion with transforaminal lumbar interbody fusion. Today is postop day #3. Patient lying in bed comfortable he denies any specific complaint to me. He says he has pain in his right leg more than left which is ongoing before surgery. He did not complain from weakness and he is able to walk with a walker at baseline as he states. Vital signs stable. Leukocytosis back to normal and creatinine improved 1 down to 0.7. Patient with evidence of urinary retention and Christopher catheter is in place with Flomax has been added. Objective - Vital Signs Vital signs: Vital Signs Temp 98.6 F 03/02/21 08:00 Pulse 73 03/02/21 08:00 Resp 16 03/02/21 08:00 BP 159/85 03/02/21 08:00 Pulse Ox 97 03/02/21 08:00 Intake & Output 03/01/21 03/02/21 03/02/21 18:59 06:59 18:59 Intake Total 1620 Output Total 4650 4400 Balance -4650 -2780 Intake: Intake, IV Titration 1000 Amount Sodium Chloride 0.9% 1, 1000 000 ml @ 75 mls/hr IV . [id number] REPLACED BY [facility] Rx#:[id number] Oral 620 Output: Urine 3750 3500 Straight 950 900 Post Void Residual 900 900 Other: Voiding Method Indwelling Catheter Urinal Indwelling Catheter Indwelling Catheter # Voids 0 0 # Bowel Movements 0 - Exam GENERAL: The patient is alert and oriented x3, not in any acute distress. Well developed, well nourished. HEENT: Pupils are round and equally reacting to light. EOMI. No scleral icterus. No conjunctival pallor. Normocephalic, atraumatic. No pharyngeal erythema. No thyromegaly. CARDIOVASCULAR: S1 and S2 present. No murmurs, rubs, or gallops. PULMONARY: Chest is clear to auscultation, no wheezing or crackles. ABDOMEN: Soft, nontender, nondistended, normoactive bowel sounds. No palpable organomegaly. -MUSCULOSKELETAL: No joint swelling or deformity. Surgical site is with dressing is in place and rest of examination is deferred to surgical team EXTREMITIES: No cyanosis, clubbing, or pedal edema. NEUROLOGICAL: Gross neurological examination did not reveal any focal deficits. SKIN: No rashes. no petechiae. - Labs CBC & Chem 7: 03/02/21 10:09 03/02/21 10:09 Labs: Abnormal Lab Results - Last 24 Hours (Table) 03/01/21 03/01/21 03/02/21 Range/Units 16:27 20:43 07:15 RBC (4.30-5.90) m/uL Hct (39.0-53.0) % Sodium (137-145) mmol/L Chloride (98-107) mmol/L Glucose (74-99) mg/dL POC Glucose (mg/dL) 142 H 219 H 172 H (75-99) mg/dL 03/02/21 03/02/21 03/02/21 Range/Units 10:09 10:09 11:45 RBC 4.28 L (4.30-5.90) m/uL Hct 38.1 L (39.0-53.0) % Sodium 130 L (137-145) mmol/L Chloride 95 L (98-107) mmol/L Glucose 184 H (74-99) mg/dL POC Glucose (mg/dL) 134 H (75-99) mg/dL Assessment and Plan Assessment: L3 to 4 and L4 to 5 severe spinal stenosis with radiculopathy and weakness of lower extremity status post L3 to L4 and L4 to L5 decompressive surgery and f usion with transforaminal lumbar interbody fusion. Bilateral leg pain more on the left side, secondary to his radiculopathy. Urinary retention status post Christopher catheter Plan: This is a pleasant 80 years old male who presents with L3 and L4 and L4 to L5 severe spinal stenosis status post decompressive surgery. Primary spine surgery team are of the case, DVT prophylaxis and pain management is deferred to primary team. Continue with normal saline. Continue with antibiotic currently on cefazolin Continue with Christopher catheter and Flomax. Labs and medication were reviewed.. Continue same treatment. Continue with symptomatic treatment. Resume home medication. Monitor lytes and vitals. DVT and GI prophylaxis. Further recommendationsas per clinical course of the patient Prognosis is guarded Thank you for consulting us, follow-up with you
[2021-03-02 16:50] LABS: Glucose,Whole Blood 187 mg/dL (75-99)
[2021-03-02] MEDS: LACTATED RINGERS 1,000 ML IV SCH (17:03)
[2021-03-02] MEDS: SODIUM CHLORIDE 0.9% 1,000 ML IV SCH (21:25)
[2021-03-02 21:33] LABS: Glucose,Whole Blood 149 mg/dL (75-99)
[2021-03-02] MEDS: METOPROLOL SUCCINATE (ER) 50 MG TAB.ER.24H PO SCH (22:08)
[2021-03-02] MEDS: CYCLOBENZAPRINE 10 MG TAB PO PRN (22:08)
[2021-03-03] MEDS: HYDROcodone/APAP 7.5-325MG 1 EACH TAB PO PRN ×5 (02:06→21:19)
[2021-03-03] MEDS: HYDROmorphone 1 MG/ML 1 ML SYRINGE IVP PRN ×2 (03:52→22:27)
[2021-03-03 06:58] LABS: Glucose,Whole Blood 156 mg/dL (75-99)
[2021-03-03] MEDS: DULoxetine HCL 30 MG CAPSULE.DR PO SCH (08:11)
[2021-03-03] MEDS: ASCORBIC ACID 500 MG TAB PO SCH (08:12)
[2021-03-03] MEDS: metFORMIN 500 MG TAB PO SCH ×2 (08:12→17:04)
[2021-03-03] MEDS: CHOLECALCIFEROL 25 MCG (1000 IU) TABLET PO SCH (08:12)
[2021-03-03] MEDS: LOSARTAN 50 MG TAB PO SCH (08:12)
[2021-03-03] MEDS: SENNOSIDES-DOCUSATE SODIUM 1 EACH TAB PO SCH (08:12)
[2021-03-03] MEDS: ZINC SULFATE 220 MG CAP PO SCH (08:12)
[2021-03-03] MEDS: PANTOPRAZOLE 40 MG TABLET PO SCH (08:12)
[2021-03-03] MEDS: ATORVASTATIN 10 MG TAB PO SCH (08:12)
[2021-03-03] MEDS: TAMSULOSIN 0.4 MG CAP.ER.24H PO SCH (08:12)
--- NOTE | 2021-03-03 09:36 | P.PN ---
Subjective Progress Note Date: 03/03/21 Principal diagnosis: Status post lumbar fusion. Postoperative urinary retention. this is an 80-year-old gentleman who is status post a minimally invasive lumbar fusion L3 4 and L4 5. He is postoperative day #4 today. The Christopher was discontinued this morning at 7 AM. He has yet to void on his own. He states that he is drinking lots of fluids. He would like to be discharged to home today. We again discussed discharged to home with Christopher which he would not like to do if possible. Objective - Vital Signs Vital signs: Vital Signs Temp 98.1 F 03/03/21 08:00 Pulse 83 03/03/21 08:00 Resp 18 03/03/21 08:00 BP 182/91 03/03/21 08:00 Pulse Ox 97 03/03/21 08:00 Intake & Output 03/02/21 03/03/21 03/03/21 18:59 06:59 18:59 Intake Total 1080 1320 Output Total 1000 3400 Balance 80 -2080 Intake: Oral 1080 1320 Output: Urine 1000 3400 Other: Voiding Method Indwelling Catheter Indwelling Catheter Indwelling Catheter # Voids 0 # Bowel Movements 0 - Exam this is a pleasant 80-year-old gentleman in no acute distress. He is alert and oriented 3. Exam of the lumbar spine reveals that his dressing is clean, dry and intact. Exam of the lower extremities reveals no deformity or neuro deficits. He is able to wiggle toes and perform active straight leg raise off the bed independently. Pedal pulses are +2/4 bilaterally. - Labs CBC & Chem 7: 03/02/21 10:09 03/02/21 10:09 Labs: Abnormal Lab Results - Last 24 Hours (Table) 03/02/21 03/02/21 03/02/21 Range/Units 10: 10:09 11:45 RBC 4.28 L (4.30-5.90) m/uL Hct 38.1 L (39.0-53.0) % Sodium 130 L (137-145) mmol/L Chloride 95 L (98-107) mmol/L Glucose 184 H (74-99) mg/dL POC Glucose (mg/dL) 134 H (75-99) mg/dL 03/02/21 03/02/21 03/03/21 Range/Units 16:48 21:30 06:57 RBC (4.30-5.90) m/uL Hct (39.0-53.0) % Sodium (137-145) mmol/L Chloride (98-107) mmol/L Glucose (74-99) mg/dL POC Glucose (mg/dL) 187 H 149 H 156 H (75-99) mg/dL Assessment and Plan (1) S/P lumbar fusion Current Visit: Yes Status: Acute Code(s): Z98.1 - ARTHRODESIS STATUS SNOMED Code(s): 65704570217948 (2) Spinal stenosis Current Visit: Yes Status: Acute Code(s): M48.00 - SPINAL STENOSIS, SITE UNSPECIFIED SNOMED Code(s): 98831697 Plan: the clinical findings are discussed the patient. He is to continue pushing fluids today. If he is able to void on his own he may be discharged to home. We will discuss possibility of discharge home with Christopher catheter and follow-up with urology next week if unable to void on his own.
[2021-03-03] MEDS: MAGNESIUM HYDROXIDE 2,400 MG/10 ML CUP PO PRN (11:22)
[2021-03-03] MEDS ORDERED: bisacodyL 10 MG SUPP RECTAL PRN (11:28)
--- NOTE | 2021-03-03 11:28 | P.DS ---
Providers Date of admission: 03/01/21 13:37 Attending physician: Aston Jamison Consults: 02/27/21 13:06 Consult Physician Routine Consulting Provider: Harrison Mendoza Consult Reason/Comments: Medical management Do you want consulting provider notified?: Yes 03/03/21 10:33 Consult Physician Routine Consulting Provider: Ricky Peraza Consult Reason/Comments: Urinary retention post op Do you want consulting provider notified?: Yes Primary care physician: [facility] Course: Patient is seen and examined today at bedside. I agree with the note from any Fu. He is making progress overall in terms of his mobility and pain control but he still has yet to void on his own. He is also not had a bowel movement but is passing gas well. On exam his abdomen is mildly distended but soft. His extremities have sustained dorsal flexion plantar flexion and EHL hip flexion the extension intact. His incision site is clean dry and intact. There is no drainage there is no erythema. His thighs and calves soft and nontender. He's afebrile stable vital signs. Postoperative day #4 status post minimally invasive decompression fusion L to 4 L4 5 for his severe spinal stenosis with facet cyst lower extremity radiculopathy Urinary retention Hypoactive bowel The patient has been making progress in terms of his surgery but he still has not yet had a bowel movement and he is still retaining urine. His Christopher was removed this morning and we'll see if he is able to. We discussed this with urology as well. If patient is not able to void freely today it would be okay for him to be discharged home with a leg bag and with close follow-up in the next day with urology. I would like him to have a bowel movement before he goes home. He feels that he is getting ready to help bowel movement and we will give him another dose of local back to see if that is helpful. He can also try a Dulcolax suppository. The patient is able to have a bowel movement and he may discharge home today with a leg bag. If he is not willing to use a catheter intact or if he is not able to have a bowel movement that he should take an overnight we'll follow closely. I discussed this with him at length and discussed the issues with him. I discussed the nature of his lower extremity issues with him and the fact that his legs will likely take several months to fully normalize before we Determine extent of healing for the nerves. He seems to understand this. Patient Condition at Discharge: Fair Plan - Discharge Summary Discharge Rx Participant: No New Discharge Prescriptions: New Cyclobenzaprine [Flexeril] 10 mg PO TID PRN #60 tab PRN Reason: Muscle Spasm HYDROcodone/APAP 7.5-325MG [Patterson 7.5-325] 1 each PO Q4H PRN #42 tab PRN Reason: Pain Cephalexin [Keflex] 500 mg PO Q6HR 1 Days #20 cap No Action metFORMIN HCL 500 mg PO BID Simvastatin [Zocor] 20 mg PO QAM Metoprolol Succinate [Toprol XL] 50 mg PO HS Fiber Tabs 1 tab PO DAILY Cholecalciferol [Vitamin D3 (25 Mcg = 1000 Iu)] 50 mcg PO DAILY Ascorbic Acid [Vitamin C] 100 mg PO DAILY Losartan [Cozaar] 50 mg PO QAM Ibuprofen [Motrin] 800 mg PO BID PRN PRN Reason: Pain Omeprazole 40 mg PO QAM DULoxetine HCL [Cymbalta] 30 mg PO QAM Zinc Sulfate [Orazinc] 25 mg PO DAILY Ubidecarenone [Co Q-10] 100 mg PO DAILY Discharge Medication List Ascorbic Acid [Vitamin C] 100 mg PO DAILY 02/25/21 [History] Cholecalciferol [Vitamin D3 (25 Mcg = 1000 Iu)] 50 mcg PO DAILY 02/25/21 [History] DULoxetine HCL [Cymbalta] 30 mg PO QAM 02/25/21 [History] Fiber Tabs 1 tab PO DAILY 02/25/21 [History] Ibuprofen [Motrin] 800 mg PO BID PRN 02/25/21 [History] Losartan [Cozaar] 50 mg PO QAM 02/25/21 [History] Metoprolol Succinate [Toprol XL] 50 mg PO HS 02/25/21 [History] Omeprazole 40 mg PO QAM 02/25/21 [History] Simvastatin [Zocor] 20 mg PO QAM 02/25/21 [History] Ubidecarenone [Co Q-10] 100 mg PO DAILY 02/25/21 [History] Zinc Sulfate [Orazinc] 25 mg PO DAILY 02/25/21 [History] metFORMIN HCL 500 mg PO BID 02/25/21 [History] Cyclobenzaprine [Flexeril] 10 mg PO TID PRN #60 tab 03/01/21 [Rx] HYDROcodone/APAP 7.5-325MG [Patterson 7.5-325] 1 each PO Q4H PRN #42 tab 03/01/21 [Rx] Cephalexin [Keflex] 500 mg PO Q6HR 1 Days #20 cap 03/03/21 [Rx] Follow up Appointment(s)/Referral(s): Lenin Pabon PAC [PHYSICIAN NEWSPAPER PHOTOGRAPHER] - 2 Weeks (Patient may follow-up with Lenin Pabon PA-C or Dr. Gino Jamison at [facility] in 2-3 weeks following discharge. ) Ricky Peraza MD [STAFF PHYSICIAN] - 1-2 Days (Follow-up with Dr. Wilder for leg bag and urinary retention management) Activity/Diet/Wound Care/Special Instructions: 1. Patient may shower with Optifoam dressing intact. 2. Patient may remove Optifoam dressing in 3 days and shower without a dressing at that time. 3. Patient should refrain from driving until at least after their first follow- up appointment in the office. 4. Patient should avoid excessive bending, twisting, lifting; avoid overhead lifting; no lifting greater than 10 pounds 5. Take medications as prescribed 6. Do not soak in tub Discharge Disposition: HOME SELF-CARE
[2021-03-03] MEDS: SODIUM CHLORIDE 0.9% 1,000 ML IV SCH ×2 (11:45→22:41)
--- NOTE | 2021-03-03 16:00 | P.PN ---
Subjective This is the first thing on covering Dr. Mendoza for this patient. this is a pleasant 80 years old male presents with L3 to 4 and L4 to 5 severe spinal stenosis with radiculopathy and weakness of lower extremity status post L3 to L4 and L4 to L5 decompressive surgery and fusion with transforaminal lumbar interbody fusion. Today is postop day #3. Patient lying in bed comfortable he denies any specific complaint to me. He says he has pain in his right leg more than left which is ongoing before surgery. He did not complain from weakness and he is able to walk with a walker at baseline as he states. Vital signs stable. Leukocytosis back to normal and creatinine improved 1 down to 0.7. Patient with evidence of urinary retention and Christopher catheter is in place with Flomax has been added. 03/03/2021 Patient clinically stable. He still complaining from pain in his both lower extremities especially more in the right side but is able to walk with a walker. It looks like he is improving his walking is much better today as per patient and staff. He has no specific complaint. No chest pain or dyspnea. Christopher catheter was removed earlier. Postvoid residual was more than 300. Consulted urologist Dr. Wagner. Charan bedside nurse informed Patient is already on Flomax. Objective - Vital Signs Vital signs: Vital Signs Temp 98.9 F 03/03/21 14:00 Pulse 91 03/03/21 14:00 Resp 18 03/03/21 14:00 BP 146/88 03/03/21 14:00 Pulse Ox 94 L 03/03/21 14:00 Intake & Output 03/02/21 03/03/21 03/03/21 18:59 06:59 18:59 Intake Total 1080 1320 Output Total 1000 3400 600 Balance 80 -2079 -600 Intake: Oral 1080 1320 Output: Urine 1000 3400 600 Uretheral (Christopher) 600 Other: Voiding Method Indwelling Catheter Indwelling Catheter Indwelling Catheter # Voids 0 # Bowel Movements 0 - Exam GENERAL: The patient is alert and oriented x3, not in any acute distress. Well developed, well nourished. HEENT: Pupils are round and equally reacting to light. EOMI. No scleral icterus. No conjunctival pallor. Normocephalic, atraumatic. No pharyngeal erythema. No thyromegaly. CARDIOVASCULAR: S1 and S2 present. No murmurs, rubs, or gallops. PULMONARY: Chest is clear to auscultation, no wheezing or crackles. ABDOMEN: Soft, nontender, nondistended, normoactive bowel sounds. No palpable organomegaly. -MUSCULOSKELETAL: No joint swelling or deformity. Surgical site is with dressing is in place and rest of examination is deferred to surgical team EXTREMITIES: No cyanosis, clubbing, or pedal edema. NEUROLOGICAL: Gross neurological examination did not reveal any focal deficits. SKIN: No rashes. no petechiae. - Labs CBC & Chem 7: 03/02/21 10:09 03/02/21 10:09 Labs: Abnormal Lab Results - Last 24 Hours (Table) 03/02/21 03/02/21 03/03/21 Range/Units 16:48 21:30 06:57 POC Glucose (mg/dL) 187 H 149 H 156 H (75-99) mg/dL Assessment and Plan Assessment: L3 to 4 and L4 to 5 severe spinal stenosis with radiculopathy and weakness of lower extremity status post L3 to L4 and L4 to L5 decompressive surgery and fusion with transforaminal lumbar interbody fusion. Bilateral leg pain more on the left side, secondary to his radiculopathy. Urinary retention status post Christopher catheter which is removed. Consult urology Plan: This is a pleasant 80 years old male who presents with L3 and L4 and L4 to L5 s evere spinal stenosis status post decompressive surgery. Primary spine surgery team are of the case, DVT prophylaxis and pain management is deferred to primary team. Continue with normal saline. Continue with antibiotic currently on cefazolin Patient with urine and consult urology and Flomax. Labs and medication were reviewed.. Continue same treatment. Continue with symptomatic treatment. Resume home medication. Monitor lytes and vitals. DVT and GI prophylaxis. Further recommendationsas per clinical course of the patient Prognosis is guarded Thank you for consulting us, we will follow-up with you
[2021-03-03 16:30] LABS: Glucose,Whole Blood 150 mg/dL (75-99)
[2021-03-03] MEDS: LACTATED RINGERS 1,000 ML IV SCH (17:04)
[2021-03-03 21:03] LABS: Glucose,Whole Blood 143 mg/dL (75-99)
[2021-03-03] MEDS: METOPROLOL SUCCINATE (ER) 50 MG TAB.ER.24H PO SCH (21:19)
[2021-03-03] MEDS: CYCLOBENZAPRINE 10 MG TAB PO PRN (22:27)
[2021-03-04 02:17] VITALS: RESP 16
[2021-03-04] MEDS: HYDROmorphone 1 MG/ML 1 ML SYRINGE IVP PRN (02:33)
[2021-03-04] MEDS: HYDROcodone/APAP 7.5-325MG 1 EACH TAB PO PRN ×2 (02:40→07:06)
[2021-03-04] MEDS: PANTOPRAZOLE 40 MG TABLET PO SCH (07:06)
[2021-03-04] MEDS: metFORMIN 500 MG TAB PO SCH (07:06)
[2021-03-04 07:52] LABS: Glucose,Whole Blood 146 mg/dL (75-99)
[2021-03-04] MEDS: TAMSULOSIN 0.4 MG CAP.ER.24H PO SCH (08:18)
[2021-03-04] MEDS: LOSARTAN 50 MG TAB PO SCH (08:18)
[2021-03-04] MEDS: ZINC SULFATE 220 MG CAP PO SCH (08:18)
[2021-03-04] MEDS: CHOLECALCIFEROL 25 MCG (1000 IU) TABLET PO SCH (08:18)
[2021-03-04] MEDS: CYCLOBENZAPRINE 10 MG TAB PO PRN (08:19)
[2021-03-04] MEDS: SENNOSIDES-DOCUSATE SODIUM 1 EACH TAB PO SCH (08:19)
[2021-03-04] MEDS: ASCORBIC ACID 500 MG TAB PO SCH (08:19)
[2021-03-04] MEDS: ATORVASTATIN 10 MG TAB PO SCH (08:19)
[2021-03-04] MEDS: DULoxetine HCL 30 MG CAPSULE.DR PO SCH (08:19)
[2021-03-04 09:21] VITALS: BP 148/82; PULSE 77; TEMP 97.9
--- NOTE | 2021-03-04 10:29 | P.PN ---
Progress Note - Text Progress Note Date: 03/04/21 Orthopedic Spine: History of present illness: Patient is a pleasant 80-year-old male who is seen and examined at the bedside following posterior lateral decompression and fusion performed Thursday. Patient states he has continued to improve postoperatively. He states he does continue to have some ongoing low back pain and generalized pain as well as lower extremities but he has been able to increase his mobility and ambulation. Physical therapy. He has been using a walker. Patient does have a walker at the bedside which he will be using at home to aid in ambulation. He also has a toilet seat riser at home. He does continue to have difficulty with urinary retention postoperatively. He has been seen by urology. Christopher catheter has been reinserted. Urology has cleared the patient for discharge with the Christopher catheter intact plans for follow-up evaluation in the office in approximately one week. Currently does not complain of nausea, vomiting, fever, or chills. Patient feels he is ready for discharge home today. He is waiting for medications to be delivered to his room from the pharmacy. He continues to be seen and examined by medicine. His pain is being controlled with oral Jasper and cyclobenzaprine. He has had one small bowel movement since his admission to the hospital. He denies any abdominal pain or discomfort. Physical Exam Lumbar Fusion: Status post surgical day number 5 Patient is awake, alert, and oriented 3 Vital signs stable Good chest excursion with deep inspiration and expiration Abdomen soft nontender Dorsiflexion, plantarflexion, and extensor hallucis longus positive sustained bilaterally No signs or symptoms of DVT; no calf pain; pneumatic cuffs intact bilateral lower extremities Dressings have been removed over the surgical site; no active drainage; no e rythema, purulence, or signs of infection Neurovascularly intact bilaterally lower extremities Assessment: Status post L3-4 and L4-5 minimally invasive posterior lateral decompression and fusion with transforaminal lumbar interbody fusion Low back pain L3-4 and L4-5 severe spinal canal stenosis L3-4 left facet cyst L4-5 right facet cyst Lower extremity radiculopathy Lower extremity weakness Urinary retention Hyperlipidemia Type 2 diabetes Obesity Plan: 1. Ambulate as tolerated; work with Physical Therapy to increase mobilization 2. Continue pain control withoral medications MAPS has been on 03/01/2021 with an Overall Overdose Risk Score of 190. An "Opiod Start Talking" Form has been signed and placed in the patient's chart. A prescription has been written for Jasper 7.5 mg/325 mg 1 tab every 4 hours as needed for pain, dispensed #42. He is also given a prescription for cyclobenzaprine 10 mg 1 tab 3 times a day as needed for muscle spasm, dispensed #60. Prescriptions were sent to the [facility] pharmacy located within [facility]. 3. Patient may shower without dressings intact 4. Patient will continue to keep his Christopher catheter intact per recommendations by urology. Patient will plan to follow up with urology in approximately 1 week for further evaluation. Medicine will plan to prescribe Flomax at discharge. Patient is cleared from a medical standpoint. 5. Patient can follow-up with Lenin Pabon PA-C or Dr. Gino Jamison at [facility] in 2-3 weeks following discharge
--- NOTE | 2021-03-04 10:55 | P.PN ---
Subjective Progress Note Date: 03/04/21 Aric Queen is an 80 yo M with PMH of HTN, OA, lumbar spinal stenosis who is admitted for decompressive lumbar fusion. He is POD#1, states he is overall feeling well, minimal low back pain. He has been up and ambulating with PT, no issues with balance or weakness. Denies chest pain, fever, chills, shortness of breath. 03/01/2021 During the night developed urinary retention requiring straight cathing 2 with eventual placement of Christopher catheter. BUN 14.3, creatinine 1. Reports positive pain. Ambulated out into the hallway. T-max 99.1, WBC 11.4. Blood sugars controlled 03/04/2021 continues on Flomax.Christopher catheter placed secondary to urinary retention. Pain controlled. Good diet intake, denies nausea or vomiting. positive bowel movement, passing flatus. Ambulating, using walker, tolerating exertion well. Denies lightheadedness, dizziness or focal deficits. Eyes chest pain, palpitations or shortness of breath. Objective - Vital Signs Vital signs: Vital Signs Temp 97.9 F 03/04/21 08:00 Pulse 77 03/04/21 08:00 Resp 16 03/04/21 08:00 BP 148/82 03/04/21 08:00 Pulse Ox 96 03/04/21 08:00 Intake & Output 03/03/21 03/04/21 03/04/21 18:59 06:59 18:59 Intake Total 1080 1320 Output Total 1900 1800 Balance -820 -480 Intake: Oral 1080 1320 Output: Urine 1900 1800 Uretheral (Christopher) 600 Other: Voiding Method Indwelling Catheter Indwelling Catheter # Bowel Movements 1 0 - Exam Gen: Sitting up at bedside NAD HEENT: normocephalic, atraumatic, mucus membranes moist Neck: supple, no thyromegaly, no JVD CV: RRR, no murmur Lungs: normal effort clear throghout Abd: soft, nontender, non distended, +BS Neuro: alert and oriented x3 no focal deficits Skin: warm and dry - Labs CBC & Chem 7: 03/02/21 10:09 03/02/21 10:09 Labs: Abnormal Lab Results - Last 24 Hours (Table) 10/24/21 10/24/21 10/25/21 Range/Units 16:26 20:35 07:48 POC Glucose (mg/dL) 150 H 143 H 146 H (75-99) mg/dL Assessment and Plan Assessment: Spinal stenosis s/p lumbar fusion. Urinary retention, status post Christopher catheter insertion HTN. T2DM. Plan: Continue on current medication regime ,monitoring and symptomatic treatment. Pain management as per orthopedic surgery. Medically cleared for discharge today in a stable condition with guarded prognosis. Patient will be discharged on Flomax, advised to follow-up with urology in 1 week. Nursing advised to teach/provide leg bag as well as Christopher care etc. The impression and plan of care has been dictated as directed. : I performed a history and examination of this patient, discussed the same with the dictator. I agree with the dictator's note ,documented as a scribe. Any additional findings or plans will be noted.
--- NOTE | 2021-03-06 09:19 | CDI ---
The patient was admitted postoperatively in regards to his spinal stenosis and his major spinal surgery. During his stay he was found have urinary retention and this led to further days of admission beyond what would've been necessary for his spinal stenosis alone. Therefore think that both of these spinal stenosis and urinary retention attribute to his total length of stay admission Documentation Clarification Form Date: 03/06/2021 09:09:53 AM From: Sonido Colón Admit Date: 03/01/2021 01:37:00 PM Patient Name: Aric Queen Visit Number: [id number] Discharge Date: 03/04/2021 11:47:00 AM ATTENTION: The Clinical Documentation Specialists (CDI) and [facility] Coding Staff appreciate your assistance in clarifying documentation. Please respond to the clarification below the line at the bottom and electronically sign. The CDI & [facility] Coding staff will review the response and follow-up if needed. Please note: Queries are made part of the Legal Health Record. If you have any questions, please contact the author of this message via ITS. Dr. Aston Jamison The patients principal diagnosis the diagnosis that was chiefly responsible for the admission - has not been clearly identified and clarification is requested. Patient admit orders: 02/27 13:10-inpatient, 02/27 16:08-outpatient, 02/28-outpatient observation, 03/01-inpatient. The patient presented spinal stenosis. Per PN 03/01 developed urinary retention and had juarez placed. Inpatient order is for 03/01. History/Risk factors: Clinical Indicators: Lab findings: Radiology findings: Vital Signs: Treatment: TLIF, juarez catheter Consults: spinal In your professional opinion, can you please clarify which diagnosis, after study, was the reason chiefly responsible for the inpatient admission? [ ] spinal stenosis [ ] urinary retention. Admitted only as outpatient for spinal surgery. [ ] Other, please specify [ ] Unable to determine [ } Both spinal stenosis and urinary retention MTDD
== END 2021-03-04 11:47 | disposition home or self-care (01) | DRG 460 ==
LOC: OR 07:03 → 4SSUR 13:26 → OR 02-28 13:27 → 4SSUR 02-28 13:27 → OBSVTOIN 03-01 13:37
PROVIDERS: ADMIT Orthopaedic Surgery Orthopaedic Surgery of the Spine; ATTEND Orthopaedic Surgery Orthopaedic Surgery of the Spine
PROC: 0SB20ZZ Excision of Lumbar Vertebral Disc, Open Approach (ICD-10-PCS; 2021-02-27)
PROC: 0SB00ZZ Excision of Lumbar Vertebral Joint, Open Approach (ICD-10-PCS; 2021-02-27)
PROC: 0SG10AJ Fusion of 2 or more Lumbar Vertebral Joints with Interbody Fusion Device, Posterior Approach, Anterior Column, Open Approach (ICD-10-PCS; principal; 2021-02-27 08:30)
DX: M48.062 Spinal stenosis, lumbar region with neurogenic claudication (principal); R33.9 Retention of urine, unspecified; D72.829 Elevated white blood cell count, unspecified; E66.9 Obesity, unspecified; Z68.30 Body mass index [BMI] 30.0-30.9, adult; E78.5 Hyperlipidemia, unspecified; I10 Essential (primary) hypertension; M54.16 Radiculopathy, lumbar region; E11.9 Type 2 diabetes mellitus without complications; Z79.84 Long term (current) use of oral hypoglycemic drugs; Z79.899 Other long term (current) drug therapy; Z86.010 Personal history of colon polyps; Z96.653 Presence of artificial knee joint, bilateral; Z20.822 Contact with and (suspected) exposure to COVID-19
CPT/HCPCS: 72100; 80048; 83735; 85025; 85027; 86850; 86900; 86901; 87635

== ENCOUNTER 2021-08-08 07:04 | Day surgery (SDC) | payer MEDICARE ==
[2021-08-06 09:48] VITALS: BMI 30.7
[~2021-08-08 07:04] MED LIST changes: +LACTATED RINGERS 1,000 ML IV SCH; -LIDOCAINE 1% (10MG/ML) FOR IV START INTRADERMA PRN; -ceFAZolin 1,000 MG in SODIUM CHLORIDE 0.9% IRRIGATIO 1,000 ML IRRIGATION PRN
[2021-08-08] MEDS ORDERED: LACTATED RINGERS 1,000 ML IV ONE (07:22)
[2021-08-08 07:26] VITALS: TEMP 97.1
[2021-08-08 07:36] LABS: Glucose,Whole Blood 154 mg/dL (75-99)
[2021-08-08] MEDS ORDERED: PROPOFOL 10 MG/ML 20 ML VIAL IV ONE (07:46)
--- NOTE | 2021-08-08 07:49 | P.GSHP ---
History of Present Illness H&P Date: 08/08/21 Chief Complaint: Epigastric abdominal pain, screening colonoscopy This 80-year-old male who's had complaints of epigastric abdominal pain. Since today for EGD and screening colonoscopy Past Medical History Past Medical History: Cancer, Diabetes Mellitus, GERD/Reflux, Hyperlipidemia, Hypertension, Musculoskeletal Disorder, Osteoarthritis (OA) Additional Past Medical History / Comment(s): Ascending aortic aneurysm. Melanoma back. Chronic back pain. Neuropathy in feet. Hx diverticulosis, polyps History of Any Multi-Drug Resistant Organisms: None Reported Past Surgical History: Back Surgery, Joint Replacement, Orthopedic Surgery Additional Past Surgical History / Comment(s): BilatTotal Knees. Fusion Rt wrist. Colonoscopy. Lumbar laminectomy, discectomy, fusion 02/2021. Past Anesthesia/Blood Transfusion Reactions: No Reported Reaction Smoking Status: Never smoker - Past Family History Mother Family Medical History: Cancer Additional Family Medical History / Comment(s): MOTHER PASSED AT AGE 38 FROM BREAST CANCER. Medications and Allergies Home Medications Medication Instructions Recorded Confirmed Type Ascorbic Acid [Vitamin C] 1,000 mg PO DAILY 02/25/21 08/06/21 History Cholecalciferol [Vitamin D3 (25 50 mcg PO HS 02/25/21 08/06/21 History Mcg = 1000 Iu)] DULoxetine HCL [Cymbalta] 30 mg PO QAM 02/25/21 08/06/21 History Losartan [Cozaar] 50 mg PO QAM 02/25/21 08/06/21 History Metoprolol Succinate [Toprol XL] 50 mg PO HS 02/25/21 08/06/21 History Simvastatin [Zocor] 20 mg PO QAM 02/25/21 08/06/21 History Ubidecarenone [Co Q-10] 200 mg PO HS 02/25/21 08/06/21 History Zinc Sulfate [Orazinc] 25 mg PO DAILY 02/25/21 08/06/21 History metFORMIN HCL 500 mg PO BID 02/25/21 08/06/21 History HYDROcodone/APAP 7.5-325MG [[place] 1 each PO Q4H PRN #42 tab 03/01/21 08/06/21 Rx 7.5-325] Ibuprofen/Diphenhydramine HCl 1 each PO DIRECTED PRN 08/06/21 08/06/21 History [Advil Pm Liqui-Gels] Pantoprazole [Protonix] 40 mg PO BID 08/06/21 08/06/21 History Sucralfate [Carafate] 1 gm PO BID 08/06/21 08/06/21 History Allergies Allergy/AdvReac Type Severity Reaction Status Date / Time No Known Allergies Allergy Verified 08/06/21 09:21 Surgical - Exam Vital Signs Temp Pulse Resp BP Pulse Ox 97.1 F L 88 18 170/90 98 08/08/21 07:26 08/08/21 07:26 08/08/21 07:26 08/08/21 07:26 08/08/21 07:26 - General well developed, well nourished, no distress - Eyes PERRL - ENT normal pinna - Neck no masses - Respiratory normal expansion - Cardiovascular Rhythm: regular - Abdomen Abdomen: soft, non tender Results - Labs Abnormal Lab Results - Last 24 Hours (Table) 08/08/21 Range/Units 07:33 POC Glucose (mg/dL) 154 H (75-99) mg/dL Assessment and Plan Assessment: Epigastric dull pain. We'll perform EGD evaluate for gastritis. We'll also perform screening colonoscopy.
--- NOTE | 2021-08-08 08:12 | P.OP ---
Date of Procedure: 08/08/21 Preoperative Diagnosis: Epigastric abdominal pain Screening colonoscopy Postoperative Diagnosis: Antral gastritis Diverticulosis Procedure(s) Performed: EGD Colonoscopy Anesthesia: MAC Surgeon: Kole Riddle Pathology: other (Antrum) Condition: stable Disposition: PACU Description of Procedure: The patient's placed on the endoscopy table in the lateral position. He received IV sedation. The gastro-/oropharynx passed in the esophagus and stomach. Scope was then placed through the pylorus. The first and second portion of the duodenum appeared normal. Scope was then brought back the antrum this appeared mildly inflamed. A biopsies performed. The scope was then retroflexed and the remainder of the stomach appeared normal. The GE junction was at 40 cm. The distal esophagus appeared normal. The proximal esophagus appeared normal. The scope was withdrawn for patient. Next digital rectal exam was performed. This revealed no abnormalities. The flexible colonoscope was then placed patient anus and passed throughout the entire colon. The ileocecal valve was visualized. The patient had pain and diverticulosis. Diverticula noted throughout the entire colon there were diverticula seen in the right colon. The scope was withdrawn. The transverse and descending colon had diverticular changes. Scope was brought back into the sigmoid colon there is diverticular changes seen there. The scope was then brought back into the rectum and this was normal. Scope withdrawn for patient. Due to the patient's placed epigastric pain. The patient was scheduled for a HIDA scan. To evaluate biliary dysfunction.
[2021-08-08 08:18] VITALS: RESP 16
[2021-08-08 08:50] VITALS: BP 132/78; PULSE 68
== END 2021-08-08 09:05 | disposition home or self-care (01) ==
LOC: ORWHC2ENDO 07:04
PROVIDERS: ATTEND Surgery
DX: K57.30 Diverticulosis of large intestine without perforation or abscess without bleeding (principal); Z12.11 Encounter for screening for malignant neoplasm of colon; K29.50 Unspecified chronic gastritis without bleeding; E11.9 Type 2 diabetes mellitus without complications; K21.9 Gastro-esophageal reflux disease without esophagitis; E78.5 Hyperlipidemia, unspecified; I10 Essential (primary) hypertension; M19.90 Unspecified osteoarthritis, unspecified site; I71.2 Thoracic aortic aneurysm, without rupture; Z85.828 Personal history of other malignant neoplasm of skin; G89.29 Other chronic pain; M54.9 Dorsalgia, unspecified; G62.9 Polyneuropathy, unspecified; Z87.19 Personal history of other diseases of the digestive system; Z96.653 Presence of artificial knee joint, bilateral; Z98.1 Arthrodesis status; Z98.890 Other specified postprocedural states; Z80.3 Family history of malignant neoplasm of breast; Z79.84 Long term (current) use of oral hypoglycemic drugs; Z79.1 Long term (current) use of non-steroidal anti-inflammatories (NSAID); Z79.899 Other long term (current) drug therapy
CPT/HCPCS: 88305; 43239; J2704; G0121

== ENCOUNTER → 2021-08-21 | Outpatient (CLI) | payer MEDICARE ==
--- NOTE | 2021-08-21 16:41 | NM ---
EXAMINATION TYPE: NM hepatobiliary w CCK DATE OF EXAM: 08/21/2021 COMPARISON: NONE INDICATION: Biliary dyskinesia TECHNIQUE: After the intravenous administration of 5.2 mCi Tc 99m Mebrofenin hepatobiliary scintigrap hy is performed. Images were obtained immediately post injection. FINDINGS: There is prompt uptake and excretion of radiotracer by the liver. Extrahepatic ducts are identified at 4 minutes. The gallbladder is visualized within 10 minutes. Small bowel activity is noted within 30 minutes. At one hour CCK was administered, patient was injected with 2.0 mcg of Kinevac, and gallbladder eject ion fraction is calculated at 16 %, which is low. (Normal >35% and <80%.). IMPRESSION: 1. Correlate for biliary hypokinesia. The ejection fraction is low at 16%.
== END | disposition home or self-care (01) ==
LOC: RADNMMAIN 06:51
PROVIDERS: ATTEND Surgery
DX: K82.8 Other specified diseases of gallbladder (principal)
CPT/HCPCS: 78227; A9537; J2805

== ENCOUNTER 2021-09-09 06:36 | Day surgery (SDC) | payer MEDICARE ==
[2021-09-06 10:47] VITALS: BMI 29.7
[~2021-09-09 06:36] MED LIST changes: +ACETAMINOPHEN TAB 500 MG TAB PO PRN; +DEXAMETHASONE SOD PHOSPHATE 4 MG/ML 1 ML VIAL IV ONE; +HEPARIN SODIUM,PORCINE/PF 5,000 UNIT/0.5 ML SYRINGE SQ PRN; +HYDROmorphone 0.5 MG/0.5 ML SYRINGE IVP PRN; +LIDOCAINE 1% (10MG/ML) FOR IV START INTRADERMA PRN; +MIDAZOLAM 2 MG/2 ML VIAL IV PRN; +ONDANSETRON 4 MG/2 ML VIAL IVP ONE
[2021-09-09 07:15] LABS: Glucose,Whole Blood 155 mg/dL (75-99)
[2021-09-09] MEDS ORDERED: SUCCINYLCHOLINE CHLORIDE 100 MG/5 ML SYR IV ONE (07:45)
[2021-09-09] MEDS ORDERED: HYDROmorphone (PF) 1 MG/ML ONE (07:45)
[2021-09-09] MEDS ORDERED: PROPOFOL 10 MG/ML 20 ML VIAL IV ONE (07:45)
[2021-09-09] MEDS ORDERED: PHENYLEPHRINE-0.9% NACL SYG 1,000 MCG/10 ML SYRINGE ONE (07:45)
[2021-09-09] MEDS ORDERED: ROCURONIUM 10 MG/ML (5 ML VIAL) IV ONE (07:45)
[2021-09-09] MEDS ORDERED: GLYCOPYRROLATE 0.2 MG/ML 2 ML VIAL ONE (07:45)
[2021-09-09] MEDS ORDERED: LIDOCAINE 2% INJ 20 MG/ML (2 ML VIAL) ONE (07:45)
[2021-09-09] MEDS ORDERED: ePHEDrine 50 MG/ML 1 ML VIAL ONE (07:45)
[2021-09-09] MEDS ORDERED: KETOROLAC 15 MG/ML 1 ML VIAL ONE (07:45)
[2021-09-09] MEDS ORDERED: fentaNYL (PF) 50 MCG/ML 2 ML AMP ONE (07:45)
[2021-09-09] MEDS ORDERED: NEOSTIGMINE 1 MG/ML 10 ML VIAL ONE (07:45)
[2021-09-09] MEDS ORDERED: BUPIVACAIN-EPI 0.25%-1:200,000 30 ML VIAL SQ ONE (08:16)
[2021-09-09] MEDS ORDERED: LACTATED RINGERS 1,000 ML IV ONE (08:39)
--- NOTE | 2021-09-09 08:46 | P.GSHP ---
History of Present Illness H&P Date: 09/09/21 Chief Complaint: Right upper quadrant pain This 80-year-old male with history of right quadrant pain. Patient underwent recent HIDA scan. He is found have evidence of chronic cholecystitis and biliary dysfunction with ejection fraction of 16%. Past Medical History Past Medical History: Cancer, Diabetes Mellitus, GERD/Reflux, Hyperlipidemia, Hypertension, Musculoskeletal Disorder, Osteoarthritis (OA) Additional Past Medical History / Comment(s): Ascending aortic aneurysm. Melanoma back. Chronic back pain. Neuropathy in feet. Hx diverticulosis, polyps History of Any Multi-Drug Resistant Organisms: None Reported Past Surgical History: Back Surgery, Joint Replacement, Orthopedic Surgery Additional Past Surgical History / Comment(s): BilatTotal Knees. Fusion Rt wrist. Colonoscopy. Lumbar laminectomy, discectomy, fusion 02/2021. Past Anesthesia/Blood Transfusion Reactions: No Reported Reaction Smoking Status: Never smoker - Past Family History Mother Family Medical History: Cancer Additional Family Medical History / Comment(s): MOTHER PASSED AT AGE 38 FROM BREAST CANCER. Medications and Allergies Home Medications Medication Instructions Recorded Confirmed Type Ascorbic Acid [Vitamin C] 1,000 mg PO DAILY 02/25/21 09/09/21 History Cholecalciferol [Vitamin D3 (25 50 mcg PO HS 02/25/21 09/09/21 History Mcg = 1000 Iu)] DULoxetine HCL [Cymbalta] 30 mg PO QAM 02/25/21 09/09/21 History Losartan [Cozaar] 50 mg PO QAM 02/25/21 09/09/21 History Metoprolol Succinate [Toprol XL] 50 mg PO HS 02/25/21 09/09/21 History Simvastatin [Zocor] 20 mg PO QAM 02/25/21 09/09/21 History Ubidecarenone [Co Q-10] 200 mg PO HS 02/25/21 09/09/21 History Zinc Sulfate [Orazinc] 25 mg PO DAILY 02/25/21 09/09/21 History metFORMIN HCL 500 mg PO BID 02/25/21 09/09/21 History HYDROcodone/APAP 7.5-325MG [[place] 1 each PO Q4H PRN #42 tab 03/01/21 09/09/21 Rx 7.5-325] Ibuprofen/Diphenhydramine HCl 1 each PO DIRECTED PRN 08/06/21 09/09/21 History [Advil Pm Liqui-Gels] Pantoprazole [Protonix] 40 mg PO BID 08/06/21 09/09/21 History Sucralfate [Carafate] 1 gm PO BID 08/06/21 09/09/21 History Allergies Allergy/AdvReac Type Severity Reaction Status Date / Time No Known Allergies Allergy Verified 09/09/21 06:59 Surgical - Exam Vital Signs Temp Pulse Resp BP Pulse Ox 97.1 F L 92 18 149/89 95 09/09/21 07:00 09/09/21 07:00 09/09/21 07:00 09/09/21 07:00 09/09/21 07:00 - General well developed, well nourished, no distress - Eyes PERRL - ENT normal pinna - Neck no masses - Respiratory normal expansion - Cardiovascular Rhythm: regular - Abdomen Abdomen: soft, non tender Results - Labs Abnormal Lab Results - Last 24 Hours (Table) 09/09/21 Range/Units 07:12 POC Glucose (mg/dL) 155 H (75-99) mg/dL Assessment and Plan Assessment: Chronic cholecystitis. We'll perform laparoscopic cholecystectomy
--- NOTE | 2021-09-09 08:47 | P.OP ---
Date of Procedure: 09/09/21 Preoperative Diagnosis: Chronic cholecystitis Postoperative Diagnosis: Chronic cholecystitis Procedure(s) Performed: Laparoscopic cholecystectomy Anesthesia: SIXTO Surgeon: Kole Riddle Estimated Blood Loss (ml): 5 Pathology: other (Gallbladder) Condition: stable Disposition: PACU Description of Procedure: The patient was placed on the operating table. The patient received a general endotracheal tube anesthesia. The patients abdomen was prepped and draped in the usual sterile fashion. Through an infraumbilical stab incision, the fascia of the anterior abdominal wall was grasped with a pair of Kochers and then the Veress needle was placed in the peritoneal cavity. Position of the Veress needle was confirmed with positive drop test. The abdomen was then insufflated. After adequate insufflation, the 10 mm trocar was placed in the peritoneal cavity. Following this the laparoscope was placed in the peritoneal cavity. The patient was placed in the head-up, right side up position and then a 5 mm trocar was placed in the right lateral and right subcostal position under direct visualization. A 8 mm trocar was placed in the epigastric position. The gallbladder was grasped in the fundus and infundibulum. Traction on the gallbladder was placed in the lateral and the cephalad positions. The triangle of Calot was visualized.. The cystic duct was bluntly dissected until the union of the cystic duct and common bile duct was seen. A critical view of safety was achieved. The cystic duct was then divided and sealed with the Harmonic scissors. A PDS Endoloop was then placed throughout the cystic duct stump. The cystic artery divided and sealed with the Harmonic scissors. The gallbladder was then removed from the liver bed using Harmonic scissors. The gallbladder was then extracted through the epigastric port site. Operative field was checked for any bleeding spots and Harmonic scissors was used to coagulate the liver bed. The abdomen was irrigated. The trocars were removed. The skin was closed using interrupted 3-0 Vicryl suture. Dermabond dressing were applied. The patient tolerated the procedure well.
[2021-09-09 09:00] VITALS: TEMP 96.9
[2021-09-09 09:54] VITALS: RESP 16
[2021-09-09 10:54] VITALS: BP 158/85; PULSE 86
== END 2021-09-09 12:16 | disposition home or self-care (01) ==
LOC: OR 06:36
PROVIDERS: ATTEND Surgery
DX: K81.1 Chronic cholecystitis (principal); I10 Essential (primary) hypertension; K21.9 Gastro-esophageal reflux disease without esophagitis; M19.90 Unspecified osteoarthritis, unspecified site; Z79.1 Long term (current) use of non-steroidal anti-inflammatories (NSAID); Z79.84 Long term (current) use of oral hypoglycemic drugs; Z80.3 Family history of malignant neoplasm of breast; E78.5 Hyperlipidemia, unspecified; E11.40 Type 2 diabetes mellitus with diabetic neuropathy, unspecified; Z85.820 Personal history of malignant melanoma of skin; Z80.9 Family history of malignant neoplasm, unspecified; Z79.899 Other long term (current) drug therapy
CPT/HCPCS: 47562; 88304; J1100; J2710; J0690; J2405; J3010; J1170 ×2; J1885; J2370; J0330; J2704; J1644; J2001